=== PATIENT | female | born 1945 | race Caucasian/White ===

== ENCOUNTER 2017-12-27 03:01 | Inpatient (IN) ==
[2017-12-27] MEDS ORDERED: Ipratropium/Albuterol Neb 3 ML IH ONE (03:20)
[2017-12-27] MEDS ORDERED: methylPREDNISolone 125 MG/2 ML VIAL IVP ONE (03:20)
[2017-12-27 03:45] LABS: Hematocrit 40.3 % (35.3-44.9); Hemoglobin 13.5 g/dL (11.5-15.4); Immature Granulocytes % 0.3 % (0-4); Lymphocytes % 11.3 %; Mean Corpuscular HGB Conc 33.5 g/dL (31.6-35.5); Mean Corpuscular Hemoglobin 30.2 pg (28.0-33.3); Mean Corpuscular Volume 90.2 fL (83.0-100.0); Mean Platelet Volume 10.6 fL (9.4-12.4); Platelet Count 223 K/mcL (140-400); Red Blood Count 4.47 M/mcL (3.82-4.97); Red Cell Distribution Width 13.4 % (11.5-14.5); Segmented Neutrophils % 73.2 %
[2017-12-27 03:46] LABS: Basophils % 0.5 %; Eosinophils # 0.1 K/mcL (0.0-0.6); Eosinophils % 1.1 %; Lymphocytes # 0.7 K/mcL (0.6-4.6); Monocytes # 0.8 K/mcL (0.0-1.3); Monocytes % 13.6 %; Neutrophils # 4.5 K/mcL (1.6-8.9)
--- NOTE | 2017-12-27 03:49 | Emergency Department Note ---
Disposition Clinical Impression: Acute exacerbation of chronic obstructive airways disease Disposition: Admitted As Inpatient Condition: Good Referrals: Gabriele Rome MD [Primary Care Provider] - Forms: ED Satisfaction Letter Time of Disposition: 05:16 SOB HPI - General Chief Complaint: ED Shortness of Breath/Dyspnea Stated Complaint: sumeet hx of copd Time Seen by Provider: 12/27/17 03:18 Source: patient Limitations: no limitations Nursing Notes Reviewed: Yes Vital Signs Reviewed: Yes - History of Present Illness 72-year-old female history of hypertension, diabetes, CAD, COPD on 2 L oxygen supplementation as needed presents to the emergency department for shortness of breath. States over the past week she is been gradually more sure breath with wheezing and cough. She was seen 4 days ago for similar symptoms and was sent home with azithromycin and prednisone. Since then she continues to gradually worsened. She reports the fever as high as 103 today. Denies any chest pain, diaphoresis. She does note some nausea no vomiting. She admits that she was positive for the flu but review of her microbiology flu swap she was negative. Her family members are concerned that she is not getting better at home. Patient denies history of blood clots. On exam patient is in some mild respiratory distress and tachypneic. COPD workup initiated. Rudi and Soljim- [facility]lindsey. Will check some basic labs EKG of the chest x-ray. Patient may require admission due to outpatient therapy failure. Pt Subjective Complaint: shortness of breath - Related Data Home Medications Medication Instructions Recorded Confirmed Albuterol Inhaler 1 puff IH DAILY 08/07/15 08/07/15 Daliresp 500 mcg PO DAILY 08/07/15 08/07/15 Losartan 50 mg PO DAILY 08/07/15 08/07/15 Metformin 500 mg PO DAILY 08/07/15 08/07/15 Oxaprozin 600 mg PO DAILY 08/07/15 08/07/15 Pravastatin Sodium 20 mg PO DAILY 08/07/15 08/07/15 Prednisone 10 mg PO DAILY 08/07/15 08/07/15 Sertraline 100 mg PO DAILY 08/07/15 08/07/15 Symbicort 1 puff IH DAILY 08/07/15 08/07/15 Previous Rx's Medication Instructions Recorded Amoxicillin/Clavulanate [Augmentin] 500 mg PO BIDWM #8 tablet 08/11/15 PredniSONE [Prednisone] 10 mg PO DAILY #21 tablet 08/11/15 Tiotropium [Spiriva] 18 mcg IH 0700 #30 capsule 08/11/15 Azithromycin [Azithromycin 6-Tab 250 mg PO PER PKG DI #6 tab 12/22/17 Pack] predniSONE [Prednisone] 50 mg PO DAILY #5 tablet 12/22/17 Allergies Allergy/AdvReac Type Severity Reaction Status Date / Time hydrocodone [From Vicodin] AdvReac Gastrointestinal Verified 12/27/17 03:09 Upset Penicillins AdvReac See Verified 12/27/17 03:09 Comments Sulfa (Sulfonamide AdvReac See Verified 12/27/17 03:09 Antibiotics) Comments tramadol [From Ultram] AdvReac See Verified 12/27/17 03:09 Comments All systems ED: reviewed and negative except as stated. Review of Systems: As Per HPI Constitutional: Reports: fever. Denies: chills ENT ED: Denies: congestion Cardiovascular: Denies: chest pain Respiratory: Reports: cough, dyspnea, wheezes Gastrointestinal: Denies: abdominal pain, nausea, vomiting Genitourinary: Denies: urgency, dysuria Musculoskeletal: Denies: back pain, neck pain Integumentary: Denies: rash, abrasion, lesions Neurological: Denies: headache, weakness Psychiatric: Denies: anxiety, depression Past Medical History - Past Medical History Attestation: Yes The following information was validated with the patient. Source: patient Medical history: Reports: arthritis, COPD, coronary artery disease, diabetes, hypertension, myocardial infarction Surgical history: Reports: hysterectomy Psychiatric history: Reports: anxiety, depression - Social History Smoking Status: Never smoker Smokeless Tobacco Status: No Alcohol use: Reports: rarely Drug use: Reports: none Physical Exam - General Limitations: no limitations General appearance: alert, in distress (respiratory, conversational dyspnea), obese - Head Head exam: atraumatic, normocephalic, normal inspection - Eye Eye exam: Present: normal appearance, PERRL, EOMI - ENT ENT exam: normal exam, normal oropharynx, mucous membranes moist - Neck Neck exam: Present: normal inspection, full ROM, trachea midline - Chest Chest inspection: Present: normal inspection, symmetric chest wall rise. Absent : tenderness - Respiratory Respiratory exam: Present: respiratory distress, wheezes, accessory muscle use, other (poor air exchange) - Cardiovascular Cardiovascular exam: Present: normal rhythm, tachycardia, normal heart sounds - Abdominal Exam Abdominal exam: Present: soft, Non-Tender, normal bowel sounds. Absent: tenderness, distention, guarding, rebound, rigidity - Extremities Exam Extremities exam: Present: normal inspection, full ROM, normal capillary refill. Absent: tenderness, pedal edema, calf tenderness - Neurological Exam Neurological exam: Present: alert, oriented X3 - Psychiatric Psychiatric exam: Present: agitated, anxious - Skin Skin exam: Present: warm, dry, intact, normal color. Absent: rash, cyanosis, diaphoresis Course Course Narrative: Patient has some mild symptom improvement with breathing treatment. She continues to maintaining good oxygen saturation while on to liter nasal cannula. Reevaluation of her lungs she has some minimal air exchange says better than prior exam. Review for labs hyponatremia 131 which appears near her baseline. Creatinine function normal. She does not have a leukocytosis but does have a low-grade fever 100.3. Lactate 1.5. Troponin lesson 0.03. Given that she has failed outpatient therapy she require admission with antibiotic treatment. Patient family are in agreement with this plan. Impression is COPD exacerbation. - Consultations Consultation #1: Spoke with on-call hospitalist aguila Humphrey to admit for COPD exacerbation failed outpatient therapy. No further orders at this time Time: 05:16 Vital Signs Temperature 100.3 F H 12/27/17 03:05 Pulse Rate 125 12/27/17 03:05 Respiratory Rate 24 12/27/17 03:05 Blood Pressure 168/78 12/27/17 03:05 O2 Sat by Pulse Oximetry 92 12/27/17 03:05 Temperature 100.3 F H 12/27/17 03:05 Pulse Rate 92 12/27/17 04:56 Respiratory Rate 20 12/27/17 04:56 Blood Pressure 109/51 12/27/17 04:56 O2 Sat by Pulse Oximetry 92 12/27/17 04:56 Oxygen Delivery Oxygen Delivery Nasal Cannula Shortness of Breath/Dyspnea - MDM Narrative Medical decision making narrative: Patient was discussed with my attending physician who agrees with ED management and final disposition. They independently evaluated the patient. Please refer to their attestation to this encounter for additional information. This note was generated by [employer] voice recognition software and as a result grammatical or spelling errors may occur using this program. - Differential Diagnosis Likely: acute exacerbation of chronic obstructive airways disease - Medical Records Medical records reviewed: Yes I reviewed the patient's medical records. - Lab Data Lab results reviewed: Yes I reviewed the patient's lab results. Result diagrams: 12/27/17 03:31 12/27/17 03:31 Lab Results 12/27/17 12/27/17 12/27/17 Range/Units 03:31 03:31 03:31 WBC 6.1 (4.3-11.1) K/mcL RBC 4.47 (3.82-4.97) M/mcL Hgb 13.5 (11.5-15.4) g/dL Hct 40.3 (35.3-44.9) % MCV 90.2 (83.0-100.0) fL MCH 30.2 (28.0-33.3) pg MCHC 33.5 (31.6-35.5) g/dL RDW 13.4 (11.5-14.5) % Plt Count 223 (140-400) K/mcL MPV 10.6 (9.4-12.4) fL Immature Gran % 0.3 (0-4) % Seg Neutrophils % 73.2 % Lymphocytes % 11.3 % Monocytes % 13.6 % Eosinophils % 1.1 % Basophils % 0.5 % Neutrophils # 4.5 (1.6-8.9) K/mcL Lymphocytes # 0.7 (0.6-4.6) K/mcL Monocytes # 0.8 (0.0-1.3) K/mcL Eosinophils # 0.1 (0.0-0.6) K/mcL Basophils # 0.0 (0.0-0.2) K/mcL Sodium 131 L (136-145) mEq/L Potassium 4.2 (3.5-5.1) mEq/L Chloride 97 L (98-107) mEq/L Carbon Dioxide 22 L (23-29) mEq/L BUN 14 (8-23) mg/dL Creatinine 1.01 (0.60-1.20) mg/dL Est GFR ( Amer) > 60 (> 60) Est GFR (Non-Af Amer) 54 L (> 60) BUN/Creatinine Ratio 14 (6-26) Glucose 216 H (70-105) mg/dL Calculated Osmolality 279 L (280-300) Lactic Acid 1.5 (0.5-2.2) mmol/L Calcium 9.4 (8.6-10.3) mg/dL Troponin I < 0.03 (< 0.04) ng/mL - Radiology Data Radiology results reviewed: Yes I reviewed the patient's radiology results. Chest X-Ray 12/27/17 03:31 IMPRESSION: No acute cardiopulmonary abnormality. D/ / Julien Balderas MD / Julien Balderas MD Interpreting Provider: Julien Balderas MD - EKG Data EKG attestation: Yes I reviewed and interpreted this EKG. EKG results narrative: EKG performed 032 sinus tachycardia 1 15 bpm, Q waves in the anteroseptal leads , no ST elevation or depression, no T-wave version. Intervals are within normal limits. AK interval 143, QRS 92, QT QTC 312 380. Compared to prior EKG performed 12/22/2017 shows similar consistent findings of sinus rhythm with Q waves in the anterior leads. No acute ischemic changes.
[2017-12-27 04:16] LABS: BUN/Creatinine Ratio 14 (6-26); Blood Urea Nitrogen 14 mg/dL (8-23); Calcium 9.4 mg/dL (8.6-10.3); Carbon Dioxide 22 mEq/L (23-29); Chloride 97 mEq/L (98-107); Glucose 216 mg/dL (70-105); Osmolality,Calculated 279 (280-300); Potassium 4.2 mEq/L (3.5-5.1); Sodium 131 mEq/L (136-145); eGFR For African Americans > 60 (> 60); eGFR For Non-African Americans 54 (> 60)
[2017-12-27 04:17] LABS: Troponin I < 0.03 ng/mL (< 0.04)
[2017-12-27] MEDS ORDERED: Levofloxacin 750 MG/150 ML 750 MG/150 ML BAG IVPB ONE (04:51)
--- NOTE | 2017-12-27 05:56 | Emergency Department Note ---
Disposition Clinical Impression: Acute exacerbation of chronic obstructive airways disease Disposition: Admitted As Inpatient Condition: Good General Adult HPI - General Chief complaint: ED Shortness of Breath/Dyspnea Stated complaint: sumeet hx of copd Time Seen by Provider: 12/27/17 03:18 Source: patient Limitations: no limitations Nursing Notes Reviewed: Yes Vital Signs Reviewed: Yes - History of Present Illness Pain Scale: 0 - Related Data Home Medications Medication Instructions Recorded Confirmed Albuterol Inhaler 1 puff IH DAILY 08/07/15 08/07/15 Daliresp 500 mcg PO DAILY 08/07/15 08/07/15 Losartan 50 mg PO DAILY 08/07/15 08/07/15 Metformin 500 mg PO DAILY 08/07/15 08/07/15 Oxaprozin 600 mg PO DAILY 08/07/15 08/07/15 Pravastatin Sodium 20 mg PO DAILY 08/07/15 08/07/15 Prednisone 10 mg PO DAILY 08/07/15 08/07/15 Sertraline 100 mg PO DAILY 08/07/15 08/07/15 Symbicort 1 puff IH DAILY 08/07/15 08/07/15 Previous Rx's Medication Instructions Recorded Amoxicillin/Clavulanate [Augmentin] 500 mg PO BIDWM #8 tablet 08/11/15 PredniSONE [Prednisone] 10 mg PO DAILY #21 tablet 08/11/15 Tiotropium [Spiriva] 18 mcg IH 0700 #30 capsule 08/11/15 Azithromycin [Azithromycin 6-Tab 250 mg PO PER PKG DI #6 tab 12/22/17 Pack] predniSONE [Prednisone] 50 mg PO DAILY #5 tablet 12/22/17 Allergies Allergy/AdvReac Type Severity Reaction Status Date / Time hydrocodone [From Vicodin] AdvReac Gastrointestinal Verified 12/27/17 03:09 Upset Penicillins AdvReac See Verified 12/27/17 03:09 Comments Sulfa (Sulfonamide AdvReac See Verified 12/27/17 03:09 Antibiotics) Comments tramadol [From Ultram] AdvReac See Verified 12/27/17 03:09 Comments Constitutional: Reports: fever. Denies: chills ENT ED: Denies: congestion Cardiovascular: Denies: chest pain Respiratory: Reports: cough, dyspnea, wheezes Gastrointestinal: Denies: abdominal pain, nausea, vomiting Genitourinary: Denies: urgency, dysuria Musculoskeletal: Denies: back pain, neck pain Integumentary: Denies: rash, abrasion, lesions Neurological: Denies: headache, weakness Psychiatric: Denies: anxiety, depression Past Medical History - Past Medical History Medical history: Reports: arthritis, COPD, coronary artery disease, diabetes, hypertension, myocardial infarction Surgical history: Reports: hysterectomy Psychiatric history: Reports: anxiety, depression - Social History Smoking Status: Never smoker Smokeless Tobacco Status: No Alcohol use: Reports: rarely Drug use: Reports: none Physical Exam - General Limitations: no limitations General appearance: alert, in distress (respiratory, conversational dyspnea), obese Course Vital Signs Temperature 100.3 F H 12/27/17 03:05 Pulse Rate 125 12/27/17 03:05 Respiratory Rate 24 12/27/17 03:05 Blood Pressure 168/78 12/27/17 03:05 O2 Sat by Pulse Oximetry 92 12/27/17 03:05 Temperature 100.3 F H 12/27/17 03:05 Pulse Rate 114 12/27/17 05:37 Respiratory Rate 95 12/27/17 05:37 Blood Pressure 107/47 12/27/17 05:37 O2 Sat by Pulse Oximetry 94 12/27/17 05:37 Oxygen Delivery Oxygen Delivery Room Air Medical Decision Making - Lab Data Result diagrams: 12/27/17 03:31 12/27/17 03:31 Lab Results 12/27/17 12/27/17 12/27/17 Range/Units 03:31 03:31 03:31 WBC 6.1 (4.3-11.1) K/mcL RBC 4.47 (3.82-4.97) M/mcL Hgb 13.5 (11.5-15.4) g/dL Hct 40.3 (35.3-44.9) % MCV 90.2 (83.0-100.0) fL MCH 30.2 (28.0-33.3) pg MCHC 33.5 (31.6-35.5) g/dL RDW 13.4 (11.5-14.5) % Plt Count 223 (140-400) K/mcL MPV 10.6 (9.4-12.4) fL Immature Gran % 0.3 (0-4) % Seg Neutrophils % 73.2 % Lymphocytes % 11.3 % Monocytes % 13.6 % Eosinophils % 1.1 % Basophils % 0.5 % Neutrophils # 4.5 (1.6-8.9) K/mcL Lymphocytes # 0.7 (0.6-4.6) K/mcL Monocytes # 0.8 (0.0-1.3) K/mcL Eosinophils # 0.1 (0.0-0.6) K/mcL Basophils # 0.0 (0.0-0.2) K/mcL Sodium 131 L (136-145) mEq/L Potassium 4.2 (3.5-5.1) mEq/L Chloride 97 L (98-107) mEq/L Carbon Dioxide 22 L (23-29) mEq/L BUN 14 (8-23) mg/dL Creatinine 1.01 (0.60-1.20) mg/dL Est GFR ( Amer) > 60 (> 60) Est GFR (Non-Af Amer) 54 L (> 60) BUN/Creatinine Ratio 14 (6-26) Glucose 216 H (70-105) mg/dL Calculated Osmolality 279 L (280-300) Lactic Acid 1.5 (0.5-2.2) mmol/L Calcium 9.4 (8.6-10.3) mg/dL Troponin I < 0.03 (< 0.04) ng/mL Attestation Statement - Attestation Attestation: I, Miguel Angel Hall MD, personally evaluated this patient and discussed their management with the resident physician. I reviewed the resident's note and agree with the documented findings, medical decision making, and plan of care. 72-year-old female with history of COPD with home oxygen presents complaining of some increased shortness of breath for a week or more. She was seen here 5 days ago and was discharged home with steroids and Z-Roger. She returns this morning complaining of increased shortness of breath tonight. She has continued to have shortness of breath all week with some low-grade fever. Temperature here was 100.3. No chest pain. On arrival here the patient was in moderate respiratory distress with tachypnea and diffuse tight bilateral expiratory wheezes. Her oxygen saturation was in the mid 90s on oxygen. On examination patient is a well-developed well-nourished elderly female in mild respiratory distress. She is alert and oriented 3. There is no cyanosis or diaphoresis. Chest is nontender to palpation. Breath sounds are decreased bilaterally with diffuse tight bilateral expiratory wheezes. Heart regular with a mild tachycardia. Abdomen is soft and nontender with normal bowel sounds. Chest x-ray negative. Labs reviewed. EKG shows a sinus tachycardia with a rate of 115. No acute ST segment elevation or depression. Old anteroseptal MT. No significant change from prior EKG dated 12/22/2017. Patient received a triple DuoNeb treatment and IV Solu-Medrol with some improvement in her symptoms but continues to have some scattered wheezes. The hospitalist, Dr. Lezama, was consulted and accepted admission of the patient.
[2017-12-27] MEDS ORDERED: Naloxone 0.4 MG/ML INJ IVP PRN (06:26)
[2017-12-27] MEDS ORDERED: Dextrose Gel 15 GM/37.5 ML TUBE PO PRN ×2 (06:29)
[2017-12-27] MEDS ORDERED: *HR* Dextrose 50 % in Water (Syg) 50 ML SYRINGE IVP PRN (06:29)
[2017-12-27] MEDS ORDERED: D5% in Water 1,000 ML IVC PRN (06:29)
[2017-12-27] MEDS ORDERED: Ipratropium/Albuterol Neb 3 ML IH PRN (06:30)
--- NOTE | 2017-12-27 06:35 | Internal Med History&Physical ---
Date of Encounter: 12/27/17 Time of Encounter: 06:00 Internal Medicine - H&P: HPI Chief complaint: SOB Admitted From: Home Plans for Post Hospital Care: Home History of present illness: Ms. Godoy is a 72 year old female present to ER for SOB for 6 days, failed outpatient treatment. PMH is significant for COPD/Asthma, DM, HTN, CAD s/p stent. Pt started to have SOB since 6 days ago, with runny nose, sore throat, productive cough. She came to ER 5 days ago, checked Flu test negative, and was prescribed po azithromycin, augmentin, and prednisone. Her condition is not improving after treatment, she started to have fever today with T 103 at home and 100.1 in ER. Pt has nausea and vomited once. She denies chest pain. She has greenish/yellowish sputum. Pt was treated with iv levaquin and solumendrol and Duoneb in ER and admitted as COPD exacerbation. Past Med Surg Social Fam HX - Past Medical History Medical history: arthritis, COPD, coronary artery disease, diabetes, hypertension, myocardial infarction Psychiatric history: anxiety, depression - Past Surgical History Surgical History: hysterectomy - Social History Smoking Status: Never smoker Smokeless Tobacco Status: No Alcohol use: rarely Drug use: none - Family History Mother History Unknown: Yes Internal Medicine - H&P: Meds Albuterol Inhaler 1 puff IH DAILY 08/07/15 [History] Losartan 50 mg PO DAILY 08/07/15 [History] Pravastatin Sodium 40 mg PO DAILY 08/07/15 [History] Sertraline 100 mg PO DAILY 08/07/15 [History] Symbicort 1 puff IH DAILY 08/07/15 [History] Tiotropium [Spiriva] 18 mcg IH 0700 #30 capsule 08/11/15 [Rx] Aspirin [Lo-Dose Aspirin EC] 81 mg PO DAILY 12/27/17 [History] Glimepiride [Amaryl] 4 mg PO DAILY 12/27/17 [History] 3 Allergy/AdvReac Type Severity Reaction Status Date / Time hydrocodone [From Vicodin] AdvReac Gastrointestinal Verified 12/27/17 03:09 Upset Penicillins AdvReac See Verified 12/27/17 03:09 Comments Sulfa (Sulfonamide AdvReac See Verified 12/27/17 03:09 Antibiotics) Comments tramadol [From Ultram] AdvReac See Verified 12/27/17 03:09 Comments All Systems PM: A 10-system review of systems was performed and is negative for pertinent findings except as documented above in the HPI. - Constitutional Vitals: Temp Pulse Resp BP Pulse Ox 100.3 F H 114 95 107/47 94 12/27/17 03:05 12/27/17 05:37 12/27/17 05:37 12/27/17 05:37 12/27/17 05:37 General appearance: Present: mild distress, A&O X 3, answers questions appropriately - Head Head exam: Present: atraumatic, normocephalic - Eye Eye exam: Present: PERRL, conjuntiva pink, sclera anicteric Pupils: Present: PERRL - Neck Neck exam general surgery: Present: supple, trachea midline. Absent: lymphadenopathy - Respiratory Respiratory exam: Present: CTAB, wheezes (Scattered wheezing b/l). Absent: accessory muscle use, rales, rhonchi - Cardiovascular Cardiovascular exam: Present: RRR, +S1, +S2, tachycardia. Absent: diastolic murmur, gallop, rubs, systolic murmur - GI/Abdominal GI/Abdominal exam: Present: normal bowel sounds, soft, no peritoneal signs. Absent: distended, tenderness - Extremities Exam Extremities exam: Present: warm, radial pulses palpable and symmetrical. Absent : calf tenderness, cyanotic, pedal edema - Neurological Exam Neurological exam: Present: CN II-XII intact, oriented X3, no focal deficits. Absent: pronater drift, facial droop, speech deficit - Skin Skin exam: Present: dry, intact Internal Med - H&P Results - Labs CBC & Chem 7: 12/27/17 03:31 12/27/17 03:31 - EKG Data -: EKG Interpreted by Myself EKG shows normal: sinus rhythm Rate: tachycardia - Assessment and plan (1) Acute exacerbation of chronic obstructive airways disease Current Visit: Yes Status: Acute Assessment and plan: Pt has wheezing. Productive cough with SOB. Hx of COPD, consider COPD exacerbation, pt failed OP treatment with po meds. - Cont cardiac and pulmonary monitooring - Treat pt with iv levaquin, solumendrol, and duoneb - Oxygen supportive treatment - Follow blood and sputum culture. - Respiratory viral penal. (2) Diabetes Current Visit: No Status: Chronic Assessment and plan: Cover pt with SSI Qualifiers: Diabetes mellitus type: type 2 Diabetes mellitus group home insulin use: without group home use Diabetes mellitus complication status: with neurologic complications Diabetes mellitus complication detail: with polyneuropathy Qualified Code(s): E11.42 - Type 2 diabetes mellitus with diabetic polyneuropathy (3) Hypertension Current Visit: No Status: Chronic Assessment and plan: Cont home meds. Qualifiers: Hypertension type: essential hypertension Qualified Code(s): I10 - Essential (primary) hypertension (4) CAD (coronary artery disease) Current Visit: No Status: Acute Assessment and plan: No chest pain. Cont home meds. Qualifiers: Coronary Disease-Associated Artery/Lesion type: solomon artery [place] vs. transplanted heart: solomon heart Associated angina: without angina Qualified Code(s): I25.10 - Atherosclerotic heart disease of solomon coronary artery without angina pectoris (5) DVT prophylaxis Current Visit: No Status: Acute Assessment and plan: Heparin SC (6) Upper respiratory infection Current Visit: No Status: Acute Assessment and plan: Pt has fever with productive cough, CXR negative, consider acute bronchitis vs early pneumonia. - Cont abx with levaquin. - Respiratory viral penal - F/U blood/sputum culture - Tylenol PRN for fever - Cough syrup for cough Qualifiers: URI type: unspecified viral URI Qualified Code(s): J06.9 - Acute upper respiratory infection, unspecified - Time Spent With Patient Total time spent is greater than 50% in coordination of care (as documented) at patient's floor/unit and/or counseling patient: 40 min Greater than 35 minutes
[2017-12-27] MEDS: Acetaminophen 325 MG TABLET PO PRN ×2 (08:29→23:29)
[2017-12-27] MEDS: Insulin LISPRO 300 UNITS/3 ML VIAL SQ SCH ×3 (08:30→16:50)
[2017-12-27] MEDS: MethylPREDNISolone 40 MG/ML VIAL IVP SCH ×3 (08:30→23:30)
[2017-12-27] MEDS: Aspirin Enteric Coated 81 MG Tablet PO SCH (08:30)
[2017-12-27] MEDS ORDERED: Ipratropium/Albuterol Neb 3 ML IH SCH (10:00)
[2017-12-27] MEDS: Ipratropium/Albuterol Neb 3 ML IH SCH ×6 (10:28→23:56)
[2017-12-27] MEDS: Tiotropium 18 MCG inhalation IH SCH (10:45)
[2017-12-27] MEDS: Budesonide/Formoterol 160/4.5 MDI IH SCH ×2 (10:45→21:24)
[2017-12-27] MEDS ORDERED: methylPREDNISolone 125 MG/2 ML VIAL IVP SCH (12:00)
[2017-12-27] MEDS ORDERED: *HR* OxyCODONE/APAP 5/325 TABLET PO SCH (13:00)
[2017-12-27] MEDS: *HR* OxyCODONE/APAP 5/325 TABLET PO PRN ×2 (14:07→20:56)
[2017-12-27] MEDS: *HR* Heparin 5,000 UNIT/ML VIAL SQ SCH (16:49)
[2017-12-27] MEDS: Gabapentin 400 MG CAPSULE PO SCH ×2 (16:49→22:01)
--- NOTE | 2017-12-27 16:55 | Electrocardiograph Report ---
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
[2017-12-27] MEDS ORDERED: 0.9 % Sodium Chloride 1,000 ML IVC SCH (18:45)
--- NOTE | 2017-12-27 19:21 | Internal Med Progress Note ---
Date of Encounter: 12/27/17 Time of Encounter: 11:20 - Assessment and plan (1) Acute exacerbation of chronic obstructive airways disease Current Visit: Yes Status: Acute Assessment and plan: Acute exacerbation. Patient with wheezing and failed outpatient therapy prior to arrival. She reports a history of shortness of breath for 6 days. She reports upper respiratory infection signs including fever and productive cough. Patient was febrile overnight with MAXIMUM TEMPERATURE of 100.3. Patient using supplemental oxygen at 3 L. Titrate as needed to maintain sats greater than 92%. Patient is being treated with IV Levaquin, scheduled nebulizer treatments, Solu- Medrol which is being tapered due to hyperglycemia, guaifenesin 600 mg by mouth twice a day. Respiratory infectious panel is ordered and pending, blood cultures are pending , sputum culture is ordered. Continue telemetry. (2) Diabetes Current Visit: No Status: Chronic Assessment and plan: Patient with hyperglycemia. She is receiving IV steroids, they are being tapered. Blood sugar greater than 500. Anion gap is 12.0. IV fluids have been started and high sliding scale insulin has been initiated. Continue gentle IV fluid hydration High-dose sliding scale insulin Diabetic diet Accu-Cheks every 3 hours until blood sugar less than 300. 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 Well controlled. Continue home meds. Qualifiers: Hypertension type: essential hypertension Qualified Code(s): I10 - Essential (primary) hypertension (4) CAD (coronary artery disease) Current Visit: Yes Status: Acute Assessment and plan: No chest pain. Cont home meds. Continue telemetry Qualifiers: Coronary Disease-Associated Artery/Lesion type: [place] artery [place] vs. transplanted heart: [place] heart Associated angina: without angina Qualified Code(s): I25.10 - Atherosclerotic heart disease of [place] coronary artery without angina pectoris (5) DVT prophylaxis Current Visit: Yes Status: Acute Assessment and plan: Heparin SQ twice a day (6) Upper respiratory infection Current Visit: No Status: Acute Assessment and plan: Plan as above for COPD exacerbation. Qualifiers: URI type: unspecified viral URI Qualified Code(s): J06.9 - Acute upper respiratory infection, unspecified - Time Spent With Patient Total time spent is greater than 50% in coordination of care (as documented) at patient's floor/unit and/or counseling patient: less than 15 minutes - Subjective Interval history: Patient was seen and assessed the bedside 11:20 AM. Patient denies cough, headache, shortness of breath, dyspnea on exertion. Patient does demonstrate a cough with deep inspiration. Patient reports recent URI symptoms of fever, productive cough, shortness of breath for 6 days prior to admission. Patient was placed on steroids and antibiotics outpatient and did not improve. Patient and I discussed tapering steroids due to hyperglycemia, patient was in agreement. - Constitutional Vitals: Temp Pulse Resp BP Pulse Ox 98.5 F 82 16 120/65 94 12/27/17 15:29 12/27/17 15:29 12/27/17 16:00 12/27/17 15:29 12/27/17 16:00 General appearance: Present: cooperative, mild distress, A&O X 3, pleasant, no acute distress, answers questions appropriately - Head Head exam: Present: atraumatic, normal inspection, normocephalic - Eye Eye exam: Present: conjuntiva pink, sclera anicteric - Neck Neck exam general surgery: Present: normal inspection, supple, trachea midline. Absent: lymphadenopathy, tenderness - Respiratory Respiratory exam: Present: decreased breath sounds, CTAB, wheezes. Absent: accessory muscle use, chest wall tenderness, rales, respiratory distress, rhonchi - Cardiovascular Cardiovascular exam: Present: RRR, +S1, +S2. Absent: bradycardia, diastolic murmur, gallop, rubs, systolic murmur, tachycardia - GI/Abdominal GI/Abdominal exam: Present: normal bowel sounds, soft. Absent: distended, hepatomegaly, tenderness - Extremities Exam Extremities exam: Present: normal capillary refill, normal inspection, warm, radial pulses palpable and symmetrical. Absent: calf tenderness, cyanotic, pedal edema, tenderness - Neurological Exam Neurological exam: Present: alert, oriented X3, no focal deficits. Absent: altered, facial droop, speech deficit - Skin Skin exam: Present: dry, intact, normal color, warm. Absent: rash Internal Medicine: Result - Labs CBC & Chem 7: 12/27/17 03:31 12/27/17 03:31 Consult Discharge Plan - Plan Referrals: Gabriele Rome MD [Primary Care Provider] - 01/09/18 3:00 pm
[2017-12-27] MEDS ORDERED: Insulin DETEMIR 100 UNIT/ML X5UNITS SQ ONE (19:53)
[2017-12-27] MEDS ORDERED: Insulin LISPRO 300 UNITS/3 ML VIAL SQ SCH ×2 (21:00)
[2017-12-27] MEDS ORDERED: Insulin LISPRO 300 UNITS/3 ML VIAL SQ ONE ×2 (22:45→23:45)
[2017-12-28] MEDS ORDERED: *HR* Dextrose 50 % in Water (Syg) 50 ML SYRINGE IVP PRN ×2 (02:44→17:56)
[2017-12-28] MEDS: Ipratropium/Albuterol Neb 3 ML IH SCH ×6 (03:30→23:56)
[2017-12-28] MEDS: Insulin Human Regular 100 UNIT in 0.9 % Sodium Chloride 100 ML IVC SCH (04:02)
[2017-12-28 04:27] LABS: Hematocrit 36.2 % (35.3-44.9); Hemoglobin 11.9 g/dL (11.5-15.4); Immature Granulocytes % 0.5 % (0-4); Lymphocytes # 0.4 K/mcL (0.6-4.6); Lymphocytes % 9.1 %; Mean Corpuscular HGB Conc 32.9 g/dL (31.6-35.5); Mean Corpuscular Hemoglobin 29.7 pg (28.0-33.3); Mean Corpuscular Volume 90.3 fL (83.0-100.0); Mean Platelet Volume 10.9 fL (9.4-12.4); Monocytes # 0.5 K/mcL (0.0-1.3); Monocytes % 12.3 %; Neutrophils # 3.2 K/mcL (1.6-8.9); Platelet Count 199 K/mcL (140-400); Red Blood Count 4.01 M/mcL (3.82-4.97); Red Cell Distribution Width 13.2 % (11.5-14.5); Segmented Neutrophils % 78.1 %
[2017-12-28 04:47] LABS: Magnesium 1.6 mg/dL (1.6-2.6); Potassium 4.1 mEq/L (3.5-5.1)
[2017-12-28] MEDS: MethylPREDNISolone 40 MG/ML VIAL IVP SCH ×2 (05:07→17:59)
[2017-12-28] MEDS: *HR* Heparin 5,000 UNIT/ML VIAL SQ SCH ×2 (05:07→17:59)
[2017-12-28] MEDS: Tiotropium 18 MCG inhalation IH SCH (07:23)
[2017-12-28] MEDS: Budesonide/Formoterol 160/4.5 MDI IH SCH ×2 (07:23→19:52)
[2017-12-28] MEDS ORDERED: Insulin LISPRO 300 UNITS/3 ML VIAL SQ SCH ×2 (07:30→21:00)
[2017-12-28] MEDS: 0.9 % Sodium Chloride 1,000 ML IVC SCH ×2 (07:55→21:26)
[2017-12-28 08:25] LABS: Estimated Average Glucose 163 mg/dl; Hemoglobin A1C 7.3 %
[2017-12-28] MEDS: Metoprolol XL (24 HR) Succ 50 MG TAB.ER.24H PO SCH (10:29)
[2017-12-28] MEDS: Gabapentin 400 MG CAPSULE PO SCH ×3 (10:29→20:07)
[2017-12-28] MEDS: Aspirin Enteric Coated 81 MG Tablet PO SCH (10:29)
[2017-12-28] MEDS: *HR* OxyCODONE/APAP 5/325 TABLET PO PRN ×2 (10:32→17:59)
[2017-12-28] MEDS ORDERED: 0.9 % Sodium Chloride 250 ML ONE (12:06)
[2017-12-28] MEDS ORDERED: 0.9 % Sodium Chloride 250 ML IVC ONE ×2 (12:08→13:55)
[2017-12-28] MEDS ORDERED: Dextrose Gel 15 GM/37.5 ML TUBE PO PRN ×2 (17:56)
[2017-12-28] MEDS ORDERED: D5% in Water 1,000 ML IVC PRN (17:56)
--- NOTE | 2017-12-28 18:07 | Internal Med Progress Note ---
Date of Encounter: 12/28/17 Time of Encounter: 09:30 - Assessment and plan (1) Acute exacerbation of chronic obstructive airways disease Current Visit: Yes Status: Acute Assessment and plan: Acute exacerbation. Pt improving. Patient using supplemental oxygen at 3 L. Titrate as needed to maintain sats greater than 92%. Wean as pt tolerates. Patient is being treated with IV Levaquin, scheduled nebulizer treatments, Solu- Medrol which is being tapered due to hyperglycemia, guaifenesin 600 mg by mouth twice a day. Pt will start po Prednisone in the a.m. Respiratory infectious panel is ordered and still pending, blood cultures negative, sputum culture is ordered. Continue telemetry. (2) Diabetes Current Visit: No Status: Chronic Assessment and plan: Patient with hyperglycemia. She is receiving IV steroids, they are being tapered. Pt was on in insulin gtt, has been stopped due to normalizing blood sugars. Accuchecks increasing, pt has been placed on SSI, medium coverage. Continuing steroid taper. Continue gentle IV fluid hydration Diabetic diet Qualifiers: Diabetes mellitus type: type 2 Diabetes mellitus bag cutter insulin use: without bag cutter use Diabetes mellitus complication status: with neurologic complications Diabetes mellitus complication detail: with polyneuropathy Qualified Code(s): E11.42 - Type 2 diabetes mellitus with diabetic polyneuropathy (3) Hypertension Current Visit: Yes Status: Chronic Assessment and plan: Chronic. Well controlled. Continue home meds. Monitor VS per admission orders. Qualifiers: Hypertension type: essential hypertension Qualified Code(s): I10 - Essential (primary) hypertension (4) CAD (coronary artery disease) Current Visit: Yes Status: Chronic Assessment and plan: Pt continues to deny chest pain. Cont home meds. Continue telemetry Qualifiers: Coronary Disease-Associated Artery/Lesion type: [place] artery [place] vs. transplanted heart: [place] heart Associated angina: without angina Qualified Code(s): I25.10 - Atherosclerotic heart disease of [place] coronary artery without angina pectoris (5) DVT prophylaxis Current Visit: Yes Status: Acute Assessment and plan: Heparin SQ BID, encourage ambulation. (6) Upper respiratory infection Current Visit: No Status: Acute Assessment and plan: Plan as above for COPD exacerbation. Respiratory panel ordered and still pending. Qualifiers: URI type: unspecified viral URI Qualified Code(s): J06.9 - Acute upper respiratory infection, unspecified - Time Spent With Patient Total time spent is greater than 50% in coordination of care (as documented) at patient's floor/unit and/or counseling patient: less than 15 minutes - Subjective Interval history: Patient was seen and assessed the bedside 0930 AM. Patient denies cough, headache, shortness of breath, dyspnea on exertion. Patient reports feeling tired today, she states she did not sleep well overnight. Patient and I discussed tapering steroids due to hyperglycemia, patient was in agreement. - Constitutional Vitals: Temp Pulse Resp BP Pulse Ox 98.8 F 93 18 120/69 94 12/28/17 14:51 12/28/17 14:51 12/28/17 15:30 12/28/17 14:51 12/28/17 15:30 General appearance: Present: cooperative, mild distress, A&O X 3, pleasant, no acute distress, answers questions appropriately - Head Head exam: Present: atraumatic, normal inspection, normocephalic - Eye Eye exam: Present: conjuntiva pink, sclera anicteric - Neck Neck exam general surgery: Present: normal inspection, supple, trachea midline. Absent: lymphadenopathy, tenderness - Respiratory Respiratory exam: Present: CTAB, wheezes. Absent: accessory muscle use, rales, respiratory distress, rhonchi - Cardiovascular Cardiovascular exam: Present: RRR, +S1, +S2. Absent: diastolic murmur, gallop, rubs, systolic murmur - GI/Abdominal GI/Abdominal exam: Present: normal bowel sounds, soft. Absent: distended, hepatomegaly, tenderness - Extremities Exam Extremities exam: Present: normal capillary refill, normal inspection, warm, radial pulses palpable and symmetrical. Absent: calf tenderness, cyanotic, pedal edema, tenderness - Neurological Exam Neurological exam: Present: alert, oriented X3, no focal deficits. Absent: facial droop, speech deficit - Skin Skin exam: Present: dry, intact, normal color, warm. Absent: rash Internal Medicine: Result - Labs CBC & Chem 7: 12/28/17 03:33 12/28/17 03:33 Labs: Short CBC 12/28/17 Range/Units 03:33 WBC 4.1 L (4.3-11.1) K/mcL Hgb 11.9 D (11.5-15.4) g/dL Hct 36.2 (35.3-44.9) % Plt Count 199 (140-400) K/mcL Neutrophils # 3.2 (1.6-8.9) K/mcL BMP 12/28/17 03:33 Sodium 130 L Potassium 4.1 Chloride 97 L Carbon Dioxide 23 BUN 30 H Creatinine 1.37 H Glucose 485 H Calcium 9.0 Consult Discharge Plan - Plan Referrals: Gabriele Rome MD [Primary Care Provider] - 01/09/18 3:00 pm
[2017-12-28] MEDS: Insulin LISPRO 300 UNITS/3 ML VIAL SQ SCH (18:09)
[2017-12-28 19:46] LABS: Adenovirus Not Detected (Not Detect); Bordetella Pertussis Not Detected (Not Detect); Chlamydophila pneumoniae Not Detected (Not Detect); Coronavirus 229E Not Detected (Not Detect); Coronavirus HKU1 Not Detected (Not Detect); Coronavirus NL63 Not Detected (Not Detect); Coronavirus OC43 Not Detected (Not Detect); Human Metapneumovirus Not Detected (Not Detect); Human Rhinovirus/Enterovirus Not Detected (Not Detect); Influenza A Subtype 2009 H1 Not Detected (Not Detect); Influenza A Untypeable Not Detected (Not Detect); Influenza B ***DETECTED*** (Not Detect); Mycoplasma pneumoniae Not Detected (Not Detect); Parainfluenza Virus 1 Not Detected (Not Detect); Parainfluenza Virus 2 Not Detected (Not Detect); Parainfluenza Virus 3 Not Detected (Not Detect); Parainfluenza Virus 4 Not Detected (Not Detect); Respiratory Syncytial Virus Not Detected (Not Detect)
[2017-12-29] MEDS: Insulin Human Regular 100 UNIT in 0.9 % Sodium Chloride 100 ML IVC SCH (01:46)
[2017-12-29] MEDS: Ipratropium/Albuterol Neb 3 ML IH SCH ×5 (03:44→19:56)
[2017-12-29 04:55] LABS: Basophils % 0.1 %; Hematocrit 36.1 % (35.3-44.9); Hemoglobin 11.5 g/dL (11.5-15.4); Immature Granulocytes % 0.3 % (0-4); Lymphocytes # 0.6 K/mcL (0.6-4.6); Lymphocytes % 8.2 %; Mean Corpuscular HGB Conc 31.9 g/dL (31.6-35.5); Mean Corpuscular Hemoglobin 29.3 pg (28.0-33.3); Mean Corpuscular Volume 92.1 fL (83.0-100.0); Mean Platelet Volume 11.2 fL (9.4-12.4); Monocytes # 0.6 K/mcL (0.0-1.3); Monocytes % 7.7 %; Platelet Count 208 K/mcL (140-400); Red Blood Count 3.92 M/mcL (3.82-4.97); Red Cell Distribution Width 13.8 % (11.5-14.5); Segmented Neutrophils % 83.7 %
[2017-12-29 04:56] LABS: Neutrophils # 6.5 K/mcL (1.6-8.9)
[2017-12-29 05:21] LABS: Calcium 8.6 mg/dL (8.6-10.3); Potassium 4.5 mEq/L (3.5-5.1)
[2017-12-29] MEDS: *HR* Heparin 5,000 UNIT/ML VIAL SQ SCH ×2 (06:24→17:39)
[2017-12-29] MEDS: Budesonide/Formoterol 160/4.5 MDI IH SCH ×2 (07:39→21:08)
[2017-12-29] MEDS: Tiotropium 18 MCG inhalation IH SCH (08:49)
[2017-12-29] MEDS ORDERED: predniSONE 20 MG TABLET PO SCH (09:00)
[2017-12-29] MEDS ORDERED: Levofloxacin 750 MG/150 ML 750 MG/150 ML BAG IVPB SCH (09:00)
[2017-12-29] MEDS ORDERED: Oseltamivir Phosphate 30 MG CAPSULE PO SCH (09:00)
[2017-12-29] MEDS: Gabapentin 400 MG CAPSULE PO SCH ×2 (10:04→16:09)
[2017-12-29] MEDS: Metoprolol XL (24 HR) Succ 50 MG TAB.ER.24H PO SCH (10:04)
[2017-12-29] MEDS: Insulin LISPRO 300 UNITS/3 ML VIAL SQ SCH ×3 (10:04→17:40)
[2017-12-29] MEDS: Aspirin Enteric Coated 81 MG Tablet PO SCH (10:04)
[2017-12-29] MEDS: *HR* OxyCODONE/APAP 5/325 TABLET PO PRN ×2 (13:41→20:25)
--- NOTE | 2017-12-29 16:28 | Discharge Summary ---
- NOTES TO OUTPATIENT PROVIDER Notes to Outpatient Provider: Pt admitted acute exacerbation of COPD. She was treated with O2, Levaquin, scheduled nebulizer treatments, Solu-Medrol, and guaifenesin. Solu-Medrol was tapered to by mouth prednisone which we will continue to taper. Patient has had rather labile blood sugars with steroids. Orders not resulted at time of discharge: Pending orders 12/27/17 06:31 Culture,Sputum with Gram Stain [RM] Stat Date of Encounter: 12/29/17 Time of Encounter: 11:45 - Discharge Diagnosis (1) Acute exacerbation of chronic obstructive airways disease Priority: Primary Status: Acute Comments: Acute exacerbation complicated by Flu B. Pt has improved significantly since admission. Today she is sitting up in bed doing cross stitch. Pt states that she is feeling better and is ready to go home. Wheezing in posterior lung jaquez, improved since admission. Pt has home 02, requested refills on Duonebs, will complete antibiotic course at home, Mucinex rx. (2) Diabetes Priority: Secondary Status: Chronic Comments: Pt's blood glucose has been labile with steroids. Currently 142 on discharge. Elevated due to steroid use. Continue home medications, closely watch accucheks at home. Diabetic diet. 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 Continue home medications. Qualifiers: Hypertension type: essential hypertension Qualified Code(s): I10 - Essential (primary) hypertension (4) CAD (coronary artery disease) Priority: Secondary Status: Chronic Comments: Chronic. Denies chest pain. Continue home medications. Qualifiers: Coronary Disease-Associated Artery/Lesion type: [place] artery [place] vs. transplanted heart: [place] heart Associated angina: without angina Qualified Code(s): I25.10 - Atherosclerotic heart disease of [place] coronary artery without angina pectoris (5) DVT prophylaxis Priority: Secondary Status: Acute Comments: Heparin SQ (6) Upper respiratory infection Priority: Secondary Status: Acute Comments: Plan as above for COPD Qualifiers: URI type: unspecified viral URI Qualified Code(s): J06.9 - Acute upper respiratory infection, unspecified (7) Influenza B Priority: Secondary Status: Acute Comments: Respiratory infectious panel positive for Flu B. Pt started on Tamiflu. Continue at home. Symptomatic treatment. Hospital course: Ms. Godoy is a 72 year old female with PMH of diabetes, COPD, chronic respiratory failure with hypoxia, hypertension, hyperlipidemia, CAD. Patient admitted to the hospital after failing outpatient antibiotic and steroid therapy for COPD exacerbation. Patient reports that she was not any better. Restoril infectious panel revealed influenza B that was most likely exacerbating her COPD, thus was not affected by antibiotics. Initially, patient refused Tamiflu, stating she did not want to take anything extra if she did not have to. Patient was not initially treated with antibiotics due to viral etiology. Patient was later placed on antibiotics by another physician, as well as starting Tamiflu, both of which she will complete at home. Patient has improved significantly over course of stay. Patient's blood sugars better under control as we have tapered her steroid has. Patient's renal function is within normal limits, GFR improving. She has remained afebrile, no tachycardia or hypotension. Patient reports that she has home O2, she is at her baseline demand. She will continue her steroid taper, as well as be sent home with a prescription for guaifenesin, and per her request a refill for duo nebs. Patient is stable, clinically improved. Patient states that she feels better, she appears better. She is stable and appropriate for discharge. Discharge discussed with: patient, nurse - Time Spent with Patient Total time spent providing and/or coordinating discharge services: Less than 30 minutes - Discharge Medications Prescriptions: Ipratropium/Albuterol Neb [Duoneb] 3 ml IH [id number] PRN #60 inhsol PRN Reason: Wheezing GuaiFENesin ER [Mucinex] 600 mg PO BID PRN #30 tbbp.12hr PRN Reason: Cough Levofloxacin [Levaquin] 750 mg PO Q48H #3 tablet Oseltamivir Phosphate [Tamiflu] 30 mg PO BID #18 capsule predniSONE [PredniSONE] 10 mg PO DAILY #16 tablet Home Medications: Albuterol Sulfate [Proair Hfa] 1 puff IH DAILY #0 08/07/15 [History] Budesonide/Formoterol 160/4.5 [Symbicort 160/4.5] 2 puff IH BID #0 08/07/15 [ History] Pravastatin Sodium [Pravachol] 40 mg PO DAILY #0 08/07/15 [History] Sertraline [Zoloft] 100 mg PO DAILY #0 08/07/15 [History] Tiotropium [Spiriva] 18 mcg IH 0700 #30 capsule 08/11/15 [Rx] Aspirin [Lo-Dose Aspirin EC] 81 mg PO DAILY 12/27/17 [History] Canagliflozin [Invokana] 100 mg PO DAILY 12/27/17 [History] Gabapentin [Neurontin] 800 mg PO TID 12/27/17 [History] Glimepiride [Amaryl] 4 mg PO DAILY 12/27/17 [History] Losartan [Cozaar] 25 mg PO DAILY 12/27/17 [History] Metoprolol Succinate [Toprol Xl] 50 mg PO DAILY 12/27/17 [History] Omeprazole [PriLOSEC] 20 mg PO DAILY 12/27/17 [History] OxyCODONE/APAP 5/325 [Percocet 5/325 MG] 1 tab PO QID 12/27/17 [History] GuaiFENesin ER [Mucinex] 600 mg PO BID PRN #30 tbbp.12hr 12/29/17 [Rx] Ipratropium/Albuterol Neb [Duoneb] 3 ml IH O2HEPEC PRN #60 inhsol 12/29/17 [Rx] Levofloxacin [Levaquin] 750 mg PO Q48H #3 tablet 12/29/17 [Rx] Oseltamivir Phosphate [Tamiflu] 30 mg PO BID #18 capsule 12/29/17 [Rx] predniSONE [PredniSONE] 10 mg PO DAILY #16 tablet 12/29/17 [Rx] Allergies/Adverse Reactions: 3 Allergy/AdvReac Type Severity Reaction Status Date / Time hydrocodone [From Vicodin] AdvReac Gastrointestinal Verified 12/27/17 09:30 Upset Penicillins AdvReac See Verified 12/27/17 09:30 Comments Sulfa (Sulfonamide AdvReac See Verified 12/27/17 09:30 Antibiotics) Comments tramadol [From Ultram] AdvReac See Verified 12/27/17 09:30 Comments Date of admission: 12/27/17 06:26 Primary care physician: Gabriele Rome Discharging clinician: Kimberlyn Licea Anticipated date of discharge: 12/29/17 - Constitutional Vitals: Temp Pulse Resp BP Pulse Ox 98.2 F 90 18 122/64 94 12/29/17 15:16 12/29/17 15:16 12/29/17 15:16 12/29/17 15:16 12/29/17 15:16 General appearance: Present: cooperative, mild distress, A&O X 3, morbidly obese , pleasant, no acute distress, answers questions appropriately - Head Head exam: Present: atraumatic, normal inspection, normocephalic - Eye Eye exam: Present: normal appearance, conjuntiva pink, sclera anicteric - Neck Neck exam general surgery: Present: normal inspection, supple, trachea midline. Absent: lymphadenopathy - Respiratory Respiratory exam: Present: CTAB, wheezes. Absent: accessory muscle use, chest wall tenderness, rales, respiratory distress, rhonchi - Cardiovascular Cardiovascular exam: Present: RRR, +S1, +S2. Absent: diastolic murmur, gallop, rubs, systolic murmur - GI/Abdominal GI/Abdominal exam: Present: normal bowel sounds, soft. Absent: distended, hepatomegaly, tenderness - Extremities Exam Extremities exam: Present: normal capillary refill, warm, radial pulses palpable and symmetrical. Absent: calf tenderness, cyanotic, pedal edema, tenderness - Neurological Exam Neurological exam: Present: alert, oriented X3, no focal deficits. Absent: facial droop, speech deficit - Skin Skin exam: Present: dry, intact, normal color, warm. Absent: rash - Patient Status Disposition: Home, Self-Care Condition: Good Functional capacity at discharge: independent ambulation Overall status at discharge: patient is progressing back to baseline - Discharge Instructions Follow Up With: Gabriele Rome MD [Primary Care Provider] - 01/09/18 3:00 pm Forms: ED Satisfaction Letter Additional Instructions: Take your medications as directed. REturn to the ER as needed for any other problems or concerns. Return to your normal activities and diet as tolerated. REst, stay in as much as possible, wear a mask in public, and drink plenty of fluids. Tyenol or Motrin for pain, treat symptoms. - Diet and Activity Activity: increase activity as tolerated Diet: advance to your usual diet
[2017-12-29 18:40] VITALS: BP 114/56
== END 2017-12-29 21:30 | disposition home or self-care (01) | DRG 194 ==
LOC: EMEROO 03:01 → 3BNU 03:01
PROVIDERS: ADMIT Internal Medicine; ATTEND Registered Nurse

== ENCOUNTER 2021-05-17 07:46 | Observation (INO) ==
[~2021-05-17 07:46] MED LIST: *HR* FentaNYL (PF) 100 MCG/2 ML VIAL IVP PRN; *HR* HYDROmorphone PF 0.5 MG/0.5 ML SYRINGE IVP PRN; Famotidine 20 MG TABLET PO ONE; Ondansetron 4 MG/2 ML VIAL IVP PRN; Vancomycin 1,500 MG/265 ML IV.SOLN IVPB ONE
[2021-05-17] MEDS ORDERED: Ringers Solution, Lactated 1,000 ML IVC SCH (08:15)
[2021-05-17] MEDS ORDERED: Lidocaine HCL 4 ML Topical Solution (Laryng-O-Jet Kit Sterile Pak) TP ONE (08:28)
[2021-05-17] MEDS ORDERED: Ondansetron 4 MG/2 ML VIAL ONE (08:28)
[2021-05-17] MEDS ORDERED: *HR* Succinylcholine 200 MG/10 ML VIAL IVP ONE (08:28)
[2021-05-17] MEDS ORDERED: Lidocaine -MPF 2% 2 ML VIAL ONE (08:28)
[2021-05-17] MEDS ORDERED: *HR* Propofol 200 MG/20 ML VIAL IVP ONE (08:29)
[2021-05-17] MEDS ORDERED: *HR* FentaNYL (PF) 100 MCG/2 ML VIAL ONE (08:29)
[2021-05-17] MEDS ORDERED: Polymyxin B Sulfate 500,000 UNIT, Sodium Chloride IRRigation 1,000 ML IR ONE (09:00)
[2021-05-17] MEDS ORDERED: EPHEDrine 50 MG/ML VIAL ONE (09:28)
[2021-05-17] MEDS ORDERED: *HR* HYDROMORPHONE 2 MG/ML VIAL ONE (09:46)
[2021-05-17] MEDS ORDERED: Ipratropium/Albuterol Neb 3 ML IH PRN (11:43)
[2021-05-17] MEDS ORDERED: (Diclofenac Sodium [Arthritis Pain] 100 GM Gel..Gram. TP PRN (11:43)
[2021-05-17] MEDS ORDERED: Acetaminophen 325 MG TABLET PO PRN (11:43)
[2021-05-17] MEDS ORDERED: Albuterol 2.5 MG/3 ML NEBULIZER IH PRN (11:43)
[2021-05-17] MEDS ORDERED: Naloxone 0.4 MG/ML INJ IVP PRN (11:43)
[2021-05-17] MEDS ORDERED: Ondansetron 4 MG/2 ML VIAL IVP PRN (11:43)
[2021-05-17] MEDS: Clindamycin 900 MG/50 ML 900 MG/50 ML IV.SOLN IVPB SCH (17:19)
[2021-05-17] MEDS: Ringers Solution, Lactated 1,000 ML IVC SCH (17:19)
[2021-05-17] MEDS: Metoprolol XL (24 HR) Succ 25 MG TAB.ER.24H PO SCH (20:25)
[2021-05-17] MEDS: *HR* OxyCODONE Immed Rel 5 MG TABLET PO PRN (20:25)
[2021-05-17] MEDS ORDERED: D5% in Water 1,000 ML IVC PRN (21:36)
[2021-05-17] MEDS ORDERED: Dextrose Gel 15 GM/37.5 ML TUBE PO PRN ×2 (21:36)
[2021-05-17] MEDS ORDERED: *HR* Dextrose 50 % in Water (Vial) 50 ML VIAL IVP PRN (21:36)
[2021-05-17] MEDS: Insulin LISPRO 300 UNITS/3 ML VIAL SUBQ SCH (22:13)
[2021-05-18] MEDS: Clindamycin 900 MG/50 ML 900 MG/50 ML IV.SOLN IVPB SCH (02:53)
[2021-05-18] MEDS: *HR* OxyCODONE Immed Rel 5 MG TABLET PO PRN ×2 (02:55→20:24)
[2021-05-18] MEDS: Insulin LISPRO 300 UNITS/3 ML VIAL SUBQ SCH ×4 (09:32→20:24)
[2021-05-18] MEDS: (Dapagliflozin Propanediol [Farxiga] 10 MG Tablet) PO SCH (09:33)
[2021-05-18] MEDS: Metoprolol XL (24 HR) Succ 25 MG TAB.ER.24H PO SCH ×2 (09:33→20:25)
[2021-05-18] MEDS: *HR* HYDROcodone/Acet 5/325 mg TABLET PO PRN ×2 (09:38→23:06)
[2021-05-18] MEDS: Ringers Solution, Lactated 1,000 ML IVC SCH (14:40)
[2021-05-18 16:26] LABS: Basophils % 0.1 %; Eosinophils % 0.3 %; Hematocrit 36.8 % (35.3-44.9); Immature Granulocytes % 0.3 % (0-4); Lymphocytes % 9.8 %; Mean Corpuscular HGB Conc 32.6 g/dL (31.6-35.5); Mean Corpuscular Hemoglobin 30.6 pg (28.0-33.3); Mean Corpuscular Volume 93.9 fL (83.0-100.0); Mean Platelet Volume 9.8 fL (9.4-12.4); Monocytes % 9.3 %; Neutrophils # 8.5 K/mcL (1.6-8.9); Platelet Count 231 K/mcL (140-400); Red Blood Count 3.92 M/mcL (3.82-4.97); Red Cell Distribution Width 13.6 % (11.5-14.5); Segmented Neutrophils % 80.2 %; White Blood Count 10.6 K/mcL (4.3-11.1)
[2021-05-18 17:03] LABS: Albumin 3.7 g/dL (3.5-5.7); Albumin/Globulin Ratio 1.1 (1.1-2.2); Bilirubin,Total 0.5 mg/dL (0.3-1.0); Calcium 8.9 mg/dL (8.6-10.3); Globulin 3.5 g/dL (2.4-3.5); Total Protein 7.2 g/dL (6.4-8.9)
[2021-05-18] MEDS ORDERED: OZEMPIC SQ SCH (20:15)
[2021-05-19] MEDS: Insulin LISPRO 300 UNITS/3 ML VIAL SUBQ SCH ×4 (08:15→20:40)
[2021-05-19] MEDS: (Dapagliflozin Propanediol [Farxiga] 10 MG Tablet) PO SCH (08:16)
[2021-05-19] MEDS: Metoprolol XL (24 HR) Succ 25 MG TAB.ER.24H PO SCH ×2 (08:17→20:39)
[2021-05-19 10:37] LABS: Influenza A PCR Negative (Negative); Influenza B PCR Negative (Negative); Resp. Syncytial Virus PCR Negative (Negative)
[2021-05-19 10:43] LABS: SARS-CoV-2 by PCR (In House) Negative (Negative)
[2021-05-19] MEDS: *HR* OxyCODONE Immed Rel 5 MG TABLET PO PRN ×2 (14:02→20:38)
[2021-05-20] MEDS: *HR* HYDROcodone/Acet 5/325 mg TABLET PO PRN (00:57)
[2021-05-20 07:39] VITALS: BP 127/74; PULSE 77; TEMP 97.9; O2SAT 95
[2021-05-20] MEDS: Insulin LISPRO 300 UNITS/3 ML VIAL SUBQ SCH ×2 (08:49→12:39)
[2021-05-20] MEDS: (Dapagliflozin Propanediol [Farxiga] 10 MG Tablet) PO SCH (08:50)
[2021-05-20] MEDS: *HR* OxyCODONE Immed Rel 5 MG TABLET PO PRN ×2 (08:55→17:19)
[2021-05-20] MEDS: Metoprolol XL (24 HR) Succ 25 MG TAB.ER.24H PO SCH (08:55)
[2021-05-20 10:23] LABS: Bilirubin,Urine Negative (Negative); Blood,Urine Negative (Negative); Clarity,Urine Clear (Clear); Color,Urine Yellow (Yellow); Glucose,Urine (UA) Normal (Normal); Ketones,Urine Negative (Negative); Leukocyte Esterase,Urine Small (Negative); Nitrite,Urine Negative (Negative); Protein,Urine Trace mg/dL (Neg-Trace); Specific Gravity,Urine 1.015 (1.010-1.025); Urobilinogen,Urine Normal (Normal)
[2021-05-20 10:37] LABS: Bacteria,Urine Few per hpf (None-Few); Calcium Phosphate Crystals,Ur Present per hpf; Mucus,Urine Few per lpf (None-Few); RBC,Urine 0-3 per hpf (0-3); Squamous Epithelial Cell,Urine Few per hpf (None-Few); Transitional Epi Cells,Urine Moderate per hpf (None-Few); WBC,Urine 15-30 per hpf (0-3)
[2021-05-20] MEDS: Nitrofurantoin (BID) 100 MG CAPSULE PO SCH ×2 (11:33→17:19)
== END 2021-05-20 17:51 ==
LOC: 3NENU 07:46 → SAMDAY 07:46 → 3NENU 14:08
PROVIDERS: ADMIT Orthopaedic Surgery Orthopaedic Surgery of the Spine; ATTEND Orthopaedic Surgery Orthopaedic Surgery of the Spine

== ENCOUNTER 2022-06-30 18:25 | Inpatient (IN) ==
[2022-06-30 22:14] LABS: Potassium 3.4 mEq/L (3.5-5.1)
[2022-06-30 22:38] LABS: Basophils % 0.3 %; Eosinophils # 0.1 K/mcL (0.0-0.6); Eosinophils % 0.8 %; Hematocrit 42.9 % (35.3-44.9); Hemoglobin 14.4 g/dL (11.5-15.4); Immature Granulocytes % 0.3 % (0-4); Lymphocytes # 2.5 K/mcL (0.6-4.6); Mean Corpuscular HGB Conc 33.6 g/dL (31.6-35.5); Mean Corpuscular Hemoglobin 28.8 pg (28.0-33.3); Mean Corpuscular Volume 85.8 fL (83.0-100.0); Mean Platelet Volume 10.4 fL (9.4-12.4); Monocytes # 1.5 K/mcL (0.0-1.3); Monocytes % 12.2 %; Neutrophils # 7.8 K/mcL (1.6-8.9); Platelet Count 340 K/mcL (140-400); Red Cell Distribution Width 13.7 % (11.5-14.5); Segmented Neutrophils % 65.4 %; White Blood Count 11.9 K/mcL (4.3-11.1)
[2022-06-30] MEDS ORDERED: Ertapenem 1,000 MG in 0.9 % Sodium Chloride Mini Bag 100 ML IVPB ONE (22:46)
[2022-06-30] MEDS ORDERED: 0.9 % Sodium Chloride 1,000 ML IVC ONE (22:50)
[2022-06-30 23:15] LABS: Albumin 4.4 g/dL (3.5-5.7); Albumin/Globulin Ratio 1.2 (1.1-2.2); Bilirubin,Direct 0.1 mg/dL (0.0-0.2); Bilirubin,Indirect 0.5 mg/dL (0.0-1.0); Bilirubin,Total 0.6 mg/dL (0.3-1.0); Globulin 3.7 g/dL (2.4-3.5); Magnesium 1.4 mg/dL (1.6-2.6); Phosphorous 4.2 mg/dL (2.7-4.5); Total Protein 8.1 g/dL (6.4-8.9)
[2022-06-30 23:18] LABS: INR 1.1; Prothrombin Time 12.5 Seconds (9.4-12.1)
[2022-06-30 23:20] LABS: Troponin I 0.04 ng/mL (< 0.04)
[2022-06-30 23:21] LABS: Activated Partial Thrombo Time 29.3 Seconds (26.0-36.0)
[2022-06-30 23:37] LABS: Bilirubin,Urine Small (Negative); Blood,Urine Trace (Negative); Clarity,Urine Ex.Turbid (Clear); Color,Urine Dark-Yellow (Yellow); Glucose,Urine (UA) 30 mg/dL (Normal); Ketones,Urine Trace mg/dL (Negative); Leukocyte Esterase,Urine Large (Negative); Nitrite,Urine Negative (Negative); Protein,Urine >=600 mg/dL (Neg-Trace); Specific Gravity,Urine > 1.030 (1.010-1.025)
[2022-06-30 23:39] LABS: Squamous Epithelial Cell,Urine Moderate per hpf (None-Few); Transitional Epi Cells,Urine Few per hpf (None-Few)
[2022-06-30 23:41] LABS: Bacteria,Urine Moderate per hpf (None-Few); WBC,Urine 15-30 per hpf (0-3)
[2022-07-01] MEDS ORDERED: Naloxone 0.4 MG/ML INJ IVP PRN (00:18)
[2022-07-01] MEDS ORDERED: Melatonin 3 MG TABLET PO PRN (00:18)
[2022-07-01] MEDS ORDERED: Ondansetron 4 MG/2 ML VIAL IVP PRN (00:18)
[2022-07-01] MEDS ORDERED: Ringers Solution, Lactated 1,000 ML IVC ONE (01:14)
[2022-07-01] MEDS ORDERED: D5% in Water 1,000 ML IVC PRN (01:15)
[2022-07-01] MEDS ORDERED: *HR* Dextrose 50 % in Water (Syg) 50 ML SYRINGE IVP PRN (01:15)
[2022-07-01] MEDS ORDERED: Dextrose Gel 15 GM/37.5 ML TUBE PO PRN ×2 (01:15)
[2022-07-01 02:33] LABS: Basophils % 0.5 %; Eosinophils # 0.1 K/mcL (0.0-0.6); Eosinophils % 1.1 %; Hematocrit 40.3 % (35.3-44.9); Hemoglobin 13.2 g/dL (11.5-15.4); Immature Granulocytes % 0.1 % (0-4); Lymphocytes % 25.6 %; Mean Corpuscular HGB Conc 32.8 g/dL (31.6-35.5); Mean Corpuscular Volume 88.6 fL (83.0-100.0); Mean Platelet Volume 10.1 fL (9.4-12.4); Monocytes # 0.9 K/mcL (0.0-1.3); Monocytes % 11.5 %; Neutrophils # 4.9 K/mcL (1.6-8.9); Platelet Count 241 K/mcL (140-400); Red Blood Count 4.55 M/mcL (3.82-4.97); Red Cell Distribution Width 13.8 % (11.5-14.5); Segmented Neutrophils % 61.2 %; White Blood Count 7.9 K/mcL (4.3-11.1)
[2022-07-01 02:39] LABS: INR 1.1; Prothrombin Time 12.6 Seconds (9.4-12.1)
[2022-07-01 02:53] LABS: Calcium 9.4 mg/dL (8.6-10.3); Magnesium 1.3 mg/dL (1.6-2.6); Phosphorous 3.9 mg/dL (2.7-4.5); Potassium 3.5 mEq/L (3.5-5.1)
[2022-07-01 02:54] LABS: Troponin I 0.03 ng/mL (< 0.04)
[2022-07-01] MEDS: *HR* Heparin 5,000 UNIT/ML VIAL SQ SCH ×3 (05:20→20:04)
[2022-07-01] MEDS: Gabapentin 100 MG CAPSULE PO SCH ×3 (09:45→20:04)
[2022-07-01] MEDS: Ertapenem 1,000 MG in 0.9 % Sodium Chloride Mini Bag 100 ML IVPB SCH (22:18)
[2022-07-01] MEDS: Acetaminophen 325 MG TABLET PO PRN (22:20)
[2022-07-02 02:43] LABS: Basophils % 0.5 %; Eosinophils # 0.1 K/mcL (0.0-0.6); Eosinophils % 1.6 %; Hematocrit 39.3 % (35.3-44.9); Immature Granulocytes % 0.1 % (0-4); Lymphocytes # 1.7 K/mcL (0.6-4.6); Lymphocytes % 19.5 %; Mean Corpuscular HGB Conc 33.1 g/dL (31.6-35.5); Mean Corpuscular Hemoglobin 29.1 pg (28.0-33.3); Mean Corpuscular Volume 87.9 fL (83.0-100.0); Mean Platelet Volume 10.3 fL (9.4-12.4); Monocytes % 11.1 %; Neutrophils # 5.9 K/mcL (1.6-8.9); Platelet Count 281 K/mcL (140-400); Red Blood Count 4.47 M/mcL (3.82-4.97); Red Cell Distribution Width 13.6 % (11.5-14.5); Segmented Neutrophils % 67.2 %; White Blood Count 8.8 K/mcL (4.3-11.1)
[2022-07-02 03:07] LABS: Calcium 9.3 mg/dL (8.6-10.3); Magnesium 1.6 mg/dL (1.6-2.6); Potassium 3.3 mEq/L (3.5-5.1)
[2022-07-02] MEDS: *HR* Heparin 5,000 UNIT/ML VIAL SQ SCH ×3 (05:27→20:14)
[2022-07-02] MEDS: Gabapentin 100 MG CAPSULE PO SCH ×3 (09:40→20:14)
[2022-07-02] MEDS ORDERED: Potassium Chloride Elixir 20 MEQ/15 ML UDC PO ONE (10:43)
[2022-07-02] MEDS: Metoprolol XL (24 HR) Succ 25 MG TAB.ER.24H PO SCH ×2 (20:13→20:35)
[2022-07-02] MEDS: Ertapenem 1,000 MG in 0.9 % Sodium Chloride Mini Bag 100 ML IVPB SCH (22:21)
[2022-07-03] MEDS: *HR* Heparin 5,000 UNIT/ML VIAL SQ SCH ×3 (05:20→20:51)
[2022-07-03] MEDS: Gabapentin 100 MG CAPSULE PO SCH ×3 (09:46→20:51)
[2022-07-03] MEDS: Metoprolol XL (24 HR) Succ 25 MG TAB.ER.24H PO SCH ×2 (09:46→20:54)
[2022-07-03 18:18] LABS: Adenovirus Not Detected (Not Detect); Bordetella Pertussis Not Detected (Not Detect); Chlamydophila pneumoniae Not Detected (Not Detect); Coronavirus 229E Not Detected (Not Detect); Coronavirus HKU1 Not Detected (Not Detect); Coronavirus NL63 Not Detected (Not Detect); Coronavirus OC43 Not Detected (Not Detect); Human Metapneumovirus Not Detected (Not Detect); Human Rhinovirus/Enterovirus Not Detected (Not Detect); Influenza A Subtype 2009 H1 Not Detected (Not Detect); Influenza B Not Detected (Not Detect); Mycoplasma pneumoniae Not Detected (Not Detect); Parainfluenza Virus 1 Not Detected (Not Detect); Parainfluenza Virus 2 Not Detected (Not Detect); Parainfluenza Virus 3 Not Detected (Not Detect); Parainfluenza Virus 4 Not Detected (Not Detect); Respiratory Syncytial Virus Not Detected (Not Detect); SARS-CoV-2 Not Detected (Not Detect)
[2022-07-03] MEDS: Ertapenem 1,000 MG in 0.9 % Sodium Chloride Mini Bag 100 ML IVPB SCH (22:14)
[2022-07-04 04:08] LABS: Calcium 9.2 mg/dL (8.6-10.3); Potassium 3.8 mEq/L (3.5-5.1)
[2022-07-04] MEDS: *HR* Heparin 5,000 UNIT/ML VIAL SQ SCH ×3 (04:55→20:14)
[2022-07-04] MEDS: Gabapentin 100 MG CAPSULE PO SCH ×3 (09:30→20:15)
[2022-07-04] MEDS: Metoprolol XL (24 HR) Succ 25 MG TAB.ER.24H PO SCH ×2 (09:34→20:13)
[2022-07-04] MEDS: Ertapenem 1,000 MG in 0.9 % Sodium Chloride Mini Bag 100 ML IVPB SCH (22:28)
[2022-07-05 04:58] LABS: Calcium 9.1 mg/dL (8.6-10.3); Potassium 3.6 mEq/L (3.5-5.1)
[2022-07-05] MEDS: *HR* Heparin 5,000 UNIT/ML VIAL SQ SCH ×3 (06:00→22:24)
[2022-07-05] MEDS: Gabapentin 100 MG CAPSULE PO SCH ×3 (09:01→20:42)
[2022-07-05] MEDS: Metoprolol XL (24 HR) Succ 25 MG TAB.ER.24H PO SCH ×2 (13:01→20:43)
[2022-07-05] MEDS: Ertapenem 1,000 MG in 0.9 % Sodium Chloride Mini Bag 100 ML IVPB SCH (22:23)
[2022-07-06] MEDS: *HR* Heparin 5,000 UNIT/ML VIAL SQ SCH ×3 (06:36→21:12)
[2022-07-06] MEDS: Gabapentin 100 MG CAPSULE PO SCH ×2 (08:51→15:00)
[2022-07-06] MEDS: Metoprolol XL (24 HR) Succ 25 MG TAB.ER.24H PO SCH ×2 (10:45→21:12)
[2022-07-06] MEDS: Acetaminophen 325 MG TABLET PO PRN (21:07)
[2022-07-06] MEDS: Ertapenem 1,000 MG in 0.9 % Sodium Chloride Mini Bag 100 ML IVPB SCH (21:13)
[2022-07-07] MEDS: *HR* Heparin 5,000 UNIT/ML VIAL SQ SCH ×3 (06:02→21:45)
[2022-07-07] MEDS: Metoprolol XL (24 HR) Succ 25 MG TAB.ER.24H PO SCH ×2 (09:21→20:11)
[2022-07-07] MEDS: Ertapenem 1,000 MG in 0.9 % Sodium Chloride Mini Bag 100 ML IVPB SCH (22:33)
[2022-07-08] MEDS: *HR* Heparin 5,000 UNIT/ML VIAL SQ SCH ×3 (05:21→21:16)
[2022-07-08] MEDS ORDERED: *HR* OxyCODONE/APAP 5/325 TABLET PO PRN (08:26)
[2022-07-08] MEDS ORDERED: *HR* OxyCODONE/APAP 7.5/325 TABLET PO PRN (08:26)
[2022-07-08] MEDS: Metoprolol XL (24 HR) Succ 25 MG TAB.ER.24H PO SCH ×2 (09:09→21:05)
[2022-07-08 16:21] LABS: Calcium 9.4 mg/dL (8.6-10.3); Potassium 3.9 mEq/L (3.5-5.1)
[2022-07-08] MEDS: Ertapenem 1,000 MG in 0.9 % Sodium Chloride Mini Bag 100 ML IVPB SCH (23:24)
[2022-07-09] MEDS: *HR* Heparin 5,000 UNIT/ML VIAL SQ SCH ×3 (05:17→21:44)
[2022-07-09] MEDS: Metoprolol XL (24 HR) Succ 25 MG TAB.ER.24H PO SCH ×2 (11:35→21:44)
[2022-07-10] MEDS: *HR* Heparin 5,000 UNIT/ML VIAL SQ SCH ×2 (05:11→13:32)
[2022-07-10] MEDS: Metoprolol XL (24 HR) Succ 25 MG TAB.ER.24H PO SCH (08:09)
[2022-07-10] MEDS ORDERED: Insulin LISPRO 300 UNITS/3 ML VIAL SUBQ SCH (12:00)
[2022-07-10 15:29] LABS: Influenza A PCR Negative (Negative); Influenza B PCR Negative (Negative); Resp. Syncytial Virus PCR Negative (Negative)
[2022-07-10 15:47] LABS: SARS-CoV-2 by PCR (In House) Negative (Negative)
[2022-07-10 15:55] VITALS: BP 118/45; PULSE 88; TEMP 98.8; O2SAT 95
== END 2022-07-10 17:18 | DRG 871 ==
LOC: 3NENU 18:25 → EMEROOARM 18:25 → SUATTDRO 07-01 00:02 → 3NENU 07-01 01:15 → SUATTDRO 07-01 01:16
PROVIDERS: ADMIT Internal Medicine; ATTEND Family Medicine